=== PATIENT | male | born 1945 ===

== ENCOUNTER 2019-11-29 06:21 | Day surgery (SDC) | payer MEDICARE ==
[~2019-11-29] VITALS: Ht 172.7 cm; Wt 92.9 kg
[2019-11-29] MEDS ORDERED: ZYLOPRIM 100MG100 MG PO (06:37)
[2019-11-29] MEDS ORDERED: CELEXA40 MG PO (06:37)
[2019-11-29] MEDS ORDERED: PRINIVIL10 MG PO (06:37)
[2019-11-29] MEDS ORDERED: PLAVIX 75MG TAB75 MG PO (06:37)
[2019-11-29] MEDS ORDERED: ASPIRIN 32325 MG/TAB PO (06:38)
[2019-11-29] MEDS ORDERED: COREG12.5 MG PO (06:38)
[2019-11-29] MEDS ORDERED: FLOMAX 0.40.4 MG/CAP PO (06:38)
[2019-11-29] MEDS ORDERED: B COMPLEX #11 TA1 PO (06:38)
[2019-11-29] MEDS ORDERED: PROBIOTIC FORMU1 CAP PO (06:39)
[2019-11-29] MEDS ORDERED: ONE-A-DAY ESSE1 EACH PO (06:39)
[2019-11-29] MEDS ORDERED: HUMALOG100 U/ML SQ (06:40)
[2019-11-29] MEDS ORDERED: LEVEMIR100 U/ML SQ (06:40)
[2019-11-29] MEDS ORDERED: CIPRO 100MG TA100 MG (06:41)
[2019-11-29] MEDS ORDERED: CIPRO 500MG TA500 MG PO (06:41)
[2019-11-29 06:42] VITALS: BP 120/64; PULSE 59; TEMP 96.9
--- NOTE | 2019-11-29 07:17 | NUR ---
JONNIE Parkinson is notified that the patient did not stop his plavix or aspirin 325 prior to OR.
--- NOTE | 2019-11-29 07:43 | NUR ---
Initial visit attempt; Telecommunication Engineer spoke with Jose's son and offered spiritual care and assured him his father Jose will be in Telecommunication Engineer's prayers.
[2019-11-29 08:25] VITALS: BP 112/45; PULSE 53; TEMP 96.9
--- NOTE | 2019-11-29 08:25 | NUR ---
Patient arrives to [facility] [place] [facility] post-procedure via cart, accompanied by LIVESTOCK JUDGING COACH and BENEFITS CONSULTING ANALYST. He is asleep. His operative site is covered by an SHANI wrap bandage and a surgical boot. Monitoring is applied - VSS and WNL on room air. Will let the patient rest and return to assess.
[2019-11-29 08:45] VITALS: BP 161/65; PULSE 57
--- NOTE | 2019-11-29 08:45 | NUR ---
VSS. Ice pack to operative site. Patient is alert, awake. He denies pain or nausea. His nerve block is in effect and he cannot feel below his right ankle. He is offered and receives water and a muffin to eat.
[2019-11-29 09:00] VITALS: BP 175/61; PULSE 55
--- NOTE | 2019-11-29 09:00 | NUR ---
Patient is resting comfortably in room. Denies pain, nausea, or need at this time. Tolerating PO well.
[2019-11-29 09:30] VITALS: BP 170/63; PULSE 55
--- NOTE | 2019-11-29 09:30 | NUR ---
VSS on room air. Denies pain, nausea, or need.
--- NOTE | 2019-11-29 09:58 | NUR ---
Patient has met discharge criteria. Discharge instructions are discussed. He denies any questions and verbalizes understanding. PIV is removed with catheter intact and hemostasis achieved. Assisted patient to change to his clothing. Escorted to the exit via wheelchair by staff, he is discharged to home with ride in private vehicle at [id number].
== END 2019-11-29 09:58 | disposition home or self-care (01) ==
LOC: SDCO 06:21
DX: E11.52 Type 2 diabetes mellitus with diabetic peripheral angiopathy with gangrene (principal); E11.621 Type 2 diabetes mellitus with foot ulcer; E11.29 Type 2 diabetes mellitus with other diabetic kidney complication; I12.9 Hypertensive chronic kidney disease with stage 1 through stage 4 chronic kidney disease, or unspecified chronic kidney disease; E11.22 Type 2 diabetes mellitus with diabetic chronic kidney disease; N18.9 Chronic kidney disease, unspecified; I96 Gangrene, not elsewhere classified; M10.9 Gout, unspecified; Z79.02 Long term (current) use of antithrombotics/antiplatelets; Z79.899 Other long term (current) drug therapy; Z98.62 Peripheral vascular angioplasty status; Z79.4 Long term (current) use of insulin
CPT/HCPCS: J0690; J2704; J7030